=== PATIENT | male | born 1980 | race African-American/Black ===

== ENCOUNTER 2021-02-14 08:21 | Emergency (ER) | payer OTHER ==
[~2021-02-14] VITALS: Ht 182.9 cm; Wt 95.0 kg
[2021-02-14 09:32] VITALS: BP 142/92
[2021-02-14 09:56] LABS: *AMPHETAMINES SCREEN URINE NEGATIVE (NEGATIVE); *BARBITURATES SCREEN URINE NEGATIVE (NEGATIVE); *BENZODIAZEPINES SCREEN URINE NEGATIVE (NEGATIVE); *COCAINE SCREEN URINE NEGATIVE (NEGATIVE); METHADONE URINE SCREEN NEGATIVE (NEGATIVE); OPIATES URINE SCREEN NEGATIVE (NEGATIVE)
[2021-02-14 09:57] LABS: CANNABINOID URINE SCREEN NEGATIVE (NEGATIVE); PHENCYCLIDINE URINE SCREEN NEGATIVE (NEGATIVE)
== END 2021-02-14 10:47 | disposition home or self-care (01) ==
LOC: ER 08:21
DX: Z13.9 Encounter for screening, unspecified (principal); I49.8 Other specified cardiac arrhythmias
CPT/HCPCS: 80305; 93005; 99284

== ENCOUNTER 2022-04-24 20:59 | Inpatient (IN) | payer OTHER, MEDICAID ==
[~2022-04-24] VITALS: Ht 175.3 cm; Wt 73.5 kg
[2022-04-24 23:42] LABS: HEMATOCRIT. 43.3 % (42.0-52.0); HEMOGLOBIN. 14.9 g/dL (14.0-18.0); MEAN CORPUSCULAR HEMOGLOBIN 31.7 pg (28.0-32.0); MEAN PLATELET VOLUME 8.4 fl (7.4-10.4); PLATELET 286 x1000/uL (130-400); RED BLOOD CELL COUNT 4.71 mill/uL (4.7-6.1); RED CELL DISTRIBUTION WIDTH 14.8 % (11.6-14.6)
[2022-04-24 23:53] LABS: CHLORIDE 98 mEq/L (98-107)
[2022-04-25 00:12] LABS: CREATINE KINASE 1513 IU/L (39-308); ETHANOL BLOOD < 10 mg/dL
[2022-04-25 00:20] LABS: PLATELET ESTIMATE NORMAL
[2022-04-25] MEDS ORDERED: LORAZEPAM 2MG/ML CPJ IV ONE (02:00)
[2022-04-25] MEDS ORDERED: SODIUM CHLORIDE 0.9% 1,000 ML IV ONE (02:00)
[2022-04-25 04:41] LABS: CLARITY URINE CLEAR (CLEAR); COLOR URINE YELLOW (YELLOW); KETONES URINE 3+ (NEGATIVE); LEUKOCYTE ESTERASE URINE NEGATIVE (NEGATIVE); NITRITE URINE NEGATIVE (NEGATIVE); OCCULT BLOOD URINE NEGATIVE (NEGATIVE); PH URINE 6.5 (4.5-8.0); PROTEIN URINE NEGATIVE (NEGATIVE); SPECIFIC GRAVITY URINE 1.021 (1.005-1.030)
[2022-04-25 05:54] LABS: *AMPHETAMINES SCREEN URINE NEGATIVE (NEGATIVE); *BARBITURATES SCREEN URINE NEGATIVE (NEGATIVE); *BENZODIAZEPINES SCREEN URINE NEGATIVE (NEGATIVE); *COCAINE SCREEN URINE NEGATIVE (NEGATIVE); CANNABINOID URINE SCREEN NEGATIVE (NEGATIVE); METHADONE URINE SCREEN NEGATIVE (NEGATIVE); OPIATES URINE SCREEN NEGATIVE (NEGATIVE); PHENCYCLIDINE URINE SCREEN NEGATIVE (NEGATIVE)
[2022-04-25 09:00] VITALS: BP 148/92
[2022-04-25] MEDS ORDERED: RISP05 MT (10:30)
[2022-04-25] MEDS ORDERED: DOCUSATE SODIUM 100MG CAPSULE PO PRN (11:00)
[2022-04-25] MEDS ORDERED: IPRATROPIUM/ALBUTEROL 0.5-3(2.5)MG/3ML NEB HHN PRN (11:00)
[2022-04-25] MEDS ORDERED: LORAZEPAM 0.5MG TABLET PO PRN (11:00)
[2022-04-25] MEDS ORDERED: CLONIDINE 0.1MG TABLET PO PRN (11:00)
[2022-04-25] MEDS ORDERED: ACETAMINOPHEN 325MG TABLET PO PRN ×2 (11:00)
[2022-04-25 12:00] VITALS: BP 155/88
[2022-04-25] MEDS: SODIUM CHLORIDE 0.9% 1,000 ML IV SCH ×2 (12:42→21:00)
[2022-04-25 16:00] VITALS: BP 157/98
[2022-04-25] MEDS: RISPERIDONE 0.5MG TABLET PO SCH (17:16)
[2022-04-25 20:00] VITALS: BP 150/101
[2022-04-26] VITALS: BP 138/82
[2022-04-26 04:00] VITALS: BP 145/89
[2022-04-26] MEDS: SODIUM CHLORIDE 0.9% 1,000 ML IV SCH ×2 (06:07→16:09)
[2022-04-26 06:31] LABS: BASOPHILS % 0.5 % (0.0-2.0); EOSINOPHILS % 2.3 % (0.0-5.0); HEMOGLOBIN. 14.1 g/dL (14.0-18.0); LYMPHOCYTES % 12.8 % (20.0-50.0); MEAN CORPUSCULAR HEMOGLOBIN 30.9 pg (28.0-32.0); MEAN CORPUSCULAR VOLUME 92.3 fL (80.0-94.0); MEAN PLATELET VOLUME 8.4 fl (7.4-10.4); MONOCYTES % 9.5 % (2.0-8.0); NEUTROPHILS % 74.9 % (40.0-76.0); PLATELET 264 x1000/uL (130-400); RED BLOOD CELL COUNT 4.55 mill/uL (4.7-6.1); RED CELL DISTRIBUTION WIDTH 14.7 % (11.6-14.6)
[2022-04-26 07:37] LABS: CHLORIDE 99 mEq/L (98-107)
[2022-04-26 08:00] VITALS: BP 132/88
[2022-04-26 08:55] LABS: CREATINE KINASE 568 IU/L (39-308)
[2022-04-26] MEDS: RISPERIDONE 0.5MG TABLET PO SCH (09:36)
[2022-04-26] MEDS: ONDANSETRON HCL 4MG/2ML INJ IV PRN (11:30)
[2022-04-26 12:00] VITALS: BP 141/94
[2022-04-26 12:03] LABS: VITAMIN B12 SERUM 486 pg/mL (211-911)
[2022-04-26 16:00] VITALS: BP 148/95
[2022-04-26] MEDS: RISPERIDONE 1MG TABLET PO SCH (16:09)
[2022-04-26] MEDS: GUAIFENESIN 600MG ER TABLET PO SCH (16:09)
[2022-04-26] MEDS: TRAZODONE HCL 50MG TABLET PO SCH (20:20)
[2022-04-26] MEDS: DIVALPROEX SODIUM 250MG DR TABLET PO SCH (20:21)
[2022-04-27] VITALS: BP 133/78
[2022-04-27] MEDS: SODIUM CHLORIDE 0.9% 1,000 ML IV SCH ×3 (03:56→22:59)
[2022-04-27 04:00] VITALS: BP 134/85
[2022-04-27 08:00] VITALS: BP 143/87
[2022-04-27 08:08] LABS: HIV SCREEN 4G Non Reactive (Non Reactive)
[2022-04-27] MEDS: RISPERIDONE 1MG TABLET PO SCH ×2 (08:19→17:57)
[2022-04-27] MEDS: DIVALPROEX SODIUM 250MG DR TABLET PO SCH ×2 (08:19→21:49)
[2022-04-27] MEDS: GUAIFENESIN 600MG ER TABLET PO SCH ×2 (08:19→21:49)
[2022-04-27] MEDS: ONDANSETRON HCL 4MG/2ML INJ IV PRN ×2 (08:24→17:56)
[2022-04-27 12:00] VITALS: BP 149/94
[2022-04-27 16:00] VITALS: BP 142/90
[2022-04-27 20:00] VITALS: BP 151/94
[2022-04-27] MEDS: TRAZODONE HCL 50MG TABLET PO SCH (21:49)
[2022-04-27] MEDS: PRAZOSIN HCL 1MG CAPSULE PO SCH (21:49)
[2022-04-28] VITALS: BP 133/77
[2022-04-28 04:00] VITALS: BP 143/80
[2022-04-28 07:44] LABS: BASOPHILS % 0.5 % (0.0-2.0); HEMATOCRIT. 40.1 % (42.0-52.0); HEMOGLOBIN. 13.5 g/dL (14.0-18.0); LYMPHOCYTES % 15.8 % (20.0-50.0); MEAN CORPUSCULAR VOLUME 91.9 fL (80.0-94.0); MEAN PLATELET VOLUME 8.2 fl (7.4-10.4); MONOCYTES % 9.7 % (2.0-8.0); PLATELET 267 x1000/uL (130-400); RED BLOOD CELL COUNT 4.37 mill/uL (4.7-6.1); RED CELL DISTRIBUTION WIDTH 14.4 % (11.6-14.6)
[2022-04-28 08:00] VITALS: BP 150/85
[2022-04-28 08:51] LABS: CHLORIDE 106 mEq/L (98-107)
[2022-04-28] MEDS: DIVALPROEX SODIUM 250MG DR TABLET PO SCH ×2 (09:00→20:45)
[2022-04-28] MEDS: ONDANSETRON HCL 4MG/2ML INJ IV PRN ×2 (10:02→18:40)
[2022-04-28] MEDS: GUAIFENESIN 600MG ER TABLET PO SCH ×2 (10:02→20:45)
[2022-04-28] MEDS: RISPERIDONE 1MG TABLET PO SCH ×2 (10:03→17:00)
[2022-04-28 12:00] VITALS: BP 139/82
[2022-04-28] MEDS: SODIUM CHLORIDE 0.9% 1,000 ML IV SCH ×2 (12:32→20:44)
[2022-04-28 16:00] VITALS: BP 152/90
[2022-04-28 20:00] VITALS: BP 163/93
[2022-04-28] MEDS: PRAZOSIN HCL 1MG CAPSULE PO SCH (20:45)
[2022-04-28] MEDS: TRAZODONE HCL 50MG TABLET PO SCH (20:45)
[2022-04-28 22:28] LABS: PROTHROMBIN TIME 10.9 sec (9.6-11.0)
[2022-04-29] VITALS: BP 141/82
[2022-04-29 04:00] VITALS: BP 144/101
[2022-04-29] MEDS: SODIUM CHLORIDE 0.9% 1,000 ML IV SCH ×2 (05:31→14:47)
[2022-04-29 08:00] VITALS: BP 135/88
[2022-04-29] MEDS: RISPERIDONE 1MG TABLET PO SCH ×2 (09:00→17:00)
[2022-04-29] MEDS: GUAIFENESIN 600MG ER TABLET PO SCH ×2 (09:34→21:00)
[2022-04-29] MEDS: DIVALPROEX SODIUM 250MG DR TABLET PO SCH ×2 (09:34→21:00)
[2022-04-29] MEDS ORDERED: LIDOCAINE HCL 1% 50ML VIAL (10MG/ML) ONE (10:23)
[2022-04-29 12:00] VITALS: BP 140/88
[2022-04-29 16:00] VITALS: BP 151/92
[2022-04-29] MEDS: PRAZOSIN HCL 1MG CAPSULE PO SCH (21:00)
[2022-04-29] MEDS: TRAZODONE HCL 50MG TABLET PO SCH (21:00)
[2022-04-30] VITALS: BP 144/91
[2022-04-30] MEDS: SODIUM CHLORIDE 0.9% 1,000 ML IV SCH ×3 (01:00→16:17)
[2022-04-30 04:00] VITALS: BP 144/88
[2022-04-30 09:26] VITALS: BP 138/93
[2022-04-30] MEDS: GUAIFENESIN 600MG ER TABLET PO SCH ×2 (09:41→21:00)
[2022-04-30] MEDS: RISPERIDONE 1MG TABLET PO SCH ×2 (09:41→18:07)
[2022-04-30] MEDS: DIVALPROEX SODIUM 250MG DR TABLET PO SCH ×2 (09:41→20:59)
[2022-04-30 14:00] VITALS: BP 140/92
[2022-04-30 16:00] VITALS: BP 139/97
[2022-04-30] MEDS: TRAZODONE HCL 50MG TABLET PO SCH (21:00)
[2022-04-30] MEDS: PRAZOSIN HCL 1MG CAPSULE PO SCH (21:00)
[2022-05-01 08:00] VITALS: BP 142/95
[2022-05-01 08:09] LABS: BASOPHILS % 1.1 % (0.0-2.0); EOSINOPHILS % 4.1 % (0.0-5.0); HEMATOCRIT. 42.3 % (42.0-52.0); HEMOGLOBIN. 14.5 g/dL (14.0-18.0); MEAN CORPUSCULAR HEMOGLOBIN 31.3 pg (28.0-32.0); MEAN CORPUSCULAR VOLUME 91.2 fL (80.0-94.0); MEAN PLATELET VOLUME 7.9 fl (7.4-10.4); MONOCYTES % 9.7 % (2.0-8.0); NEUTROPHILS % 70.1 % (40.0-76.0); PLATELET 283 x1000/uL (130-400); RED BLOOD CELL COUNT 4.63 mill/uL (4.7-6.1)
[2022-05-01 08:25] LABS: CHLORIDE 103 mEq/L (98-107)
[2022-05-01] MEDS: RISPERIDONE 1MG TABLET PO SCH ×2 (09:00→10:06)
[2022-05-01] MEDS: DIVALPROEX SODIUM 250MG DR TABLET PO SCH ×2 (09:00→10:06)
[2022-05-01] MEDS: GUAIFENESIN 600MG ER TABLET PO SCH ×2 (10:06→21:41)
[2022-05-01] MEDS: SODIUM CHLORIDE 0.9% 1,000 ML IV SCH (10:06)
[2022-05-01] MEDS: ONDANSETRON HCL 4MG/2ML INJ IV PRN (10:14)
[2022-05-01 12:00] VITALS: BP 142/96
[2022-05-01] MEDS ORDERED: METHYLPREDNISOLONE SOD SUCC 125 MG/2 ML VIAL IV SCH (13:00)
[2022-05-01] MEDS: METHYLPREDNISOLONE SOD SUCC 40 MG/ML VIAL IV SCH ×2 (14:00→21:43)
[2022-05-01 16:00] VITALS: BP 140/96
[2022-05-01 20:00] VITALS: BP 138/94
[2022-05-01] MEDS: PRAZOSIN HCL 1MG CAPSULE PO SCH (21:41)
[2022-05-01] MEDS: TRAZODONE HCL 50MG TABLET PO SCH (21:42)
[2022-05-02] VITALS: BP 34/92
[2022-05-02] MEDS: SODIUM CHLORIDE 0.9% 1,000 ML IV SCH ×2 (00:05→09:53)
[2022-05-02 04:00] VITALS: BP 150/94
[2022-05-02] MEDS: METHYLPREDNISOLONE SOD SUCC 40 MG/ML VIAL IV SCH ×3 (05:06→21:15)
[2022-05-02 06:52] LABS: BASOPHILS % 0.4 % (0.0-2.0); HEMATOCRIT. 44.5 % (42.0-52.0); HEMOGLOBIN. 14.9 g/dL (14.0-18.0); MEAN CORPUSCULAR HEMOGLOBIN 30.8 pg (28.0-32.0); MEAN CORPUSCULAR VOLUME 91.8 fL (80.0-94.0); MEAN PLATELET VOLUME 8.2 fl (7.4-10.4); MONOCYTES % 3.2 % (2.0-8.0); NEUTROPHILS % 82.4 % (40.0-76.0); PLATELET 289 x1000/uL (130-400); RED BLOOD CELL COUNT 4.85 mill/uL (4.7-6.1)
[2022-05-02 07:18] LABS: CHLORIDE 103 mEq/L (98-107)
[2022-05-02 08:00] VITALS: BP 146/91
[2022-05-02] MEDS: GUAIFENESIN 600MG ER TABLET PO SCH ×2 (09:48→20:42)
[2022-05-02] MEDS: DIVALPROEX SODIUM 250MG DR TABLET PO SCH ×2 (09:48→20:44)
[2022-05-02] MEDS: RISPERIDONE 1MG TABLET PO SCH (09:48)
[2022-05-02 10:29] LABS: GLUCOSE CSF 54 mg/dL (41-75)
[2022-05-02 12:00] VITALS: BP 134/90
[2022-05-02 16:00] VITALS: BP 128/80
[2022-05-02 20:00] VITALS: BP 145/84
[2022-05-02] MEDS: TRAZODONE HCL 50MG TABLET PO SCH (20:42)
[2022-05-02] MEDS: PRAZOSIN HCL 1MG CAPSULE PO SCH (20:43)
[2022-05-03] VITALS: BP 128/82
[2022-05-03 04:00] VITALS: BP 135/83
[2022-05-03] MEDS: METHYLPREDNISOLONE SOD SUCC 40 MG/ML VIAL IV SCH ×3 (05:11→22:28)
[2022-05-03] MEDS ORDERED: POLYETHYLENE GLYCOL 3350 (17GM) 1 DOSE PACK PO PRN (09:45)
[2022-05-03] MEDS: RISPERIDONE 1MG TABLET PO SCH ×3 (09:45→16:55)
[2022-05-03] MEDS: GUAIFENESIN 600MG ER TABLET PO SCH ×2 (09:45→22:26)
[2022-05-03] MEDS: DIVALPROEX SODIUM 250MG DR TABLET PO SCH ×2 (09:46→22:26)
[2022-05-03] MEDS: SODIUM CHLORIDE 0.9% 1,000 ML IV SCH ×3 (09:48→21:00)
[2022-05-03 12:00] VITALS: BP 137/84
[2022-05-03 16:00] VITALS: BP 147/90
[2022-05-03 20:26] VITALS: BP 132/76
[2022-05-03] MEDS: PRAZOSIN HCL 1MG CAPSULE PO SCH (22:26)
[2022-05-03] MEDS: TRAZODONE HCL 50MG TABLET PO SCH (22:27)
[2022-05-04] VITALS (7 sets, daily range): BP systolic 128–142; BP diastolic 74–92
[2022-05-04] MEDS: SODIUM CHLORIDE 0.9% 1,000 ML IV SCH ×2 (05:22→17:15)
[2022-05-04] MEDS: METHYLPREDNISOLONE SOD SUCC 40 MG/ML VIAL IV SCH ×3 (05:46→21:20)
[2022-05-04] MEDS ORDERED: NA PHOS,M-B/NA PHOS,DI-BA ENEMA 118ML PR SCH (06:00)
[2022-05-04] MEDS: GUAIFENESIN 600MG ER TABLET PO SCH ×2 (09:18→21:20)
[2022-05-04] MEDS: RISPERIDONE 1MG TABLET PO SCH ×2 (09:18→17:14)
[2022-05-04] MEDS: DIVALPROEX SODIUM 250MG DR TABLET PO SCH ×2 (09:18→21:20)
[2022-05-04] MEDS ORDERED: BARIUM SULFATE 176 GM SUSP.RECON ONE (10:07)
[2022-05-04] MEDS: PRAZOSIN HCL 1MG CAPSULE PO SCH (21:20)
[2022-05-04] MEDS: TRAZODONE HCL 50MG TABLET PO SCH (21:20)
[2022-05-05] MEDS: SODIUM CHLORIDE 0.9% 1,000 ML IV SCH ×3 (02:12→21:49)
[2022-05-05 04:00] VITALS: BP 137/84
[2022-05-05] MEDS: METHYLPREDNISOLONE SOD SUCC 40 MG/ML VIAL IV SCH ×3 (05:18→21:49)
[2022-05-05 08:00] VITALS: BP 140/85
[2022-05-05] MEDS: DIVALPROEX SODIUM 250MG DR TABLET PO SCH ×2 (08:59→21:45)
[2022-05-05] MEDS: RISPERIDONE 1MG TABLET PO SCH ×2 (08:59→17:06)
[2022-05-05] MEDS: GUAIFENESIN 600MG ER TABLET PO SCH ×2 (08:59→21:45)
[2022-05-05 12:00] VITALS: BP 138/79
[2022-05-05 16:00] VITALS: BP 144/91
[2022-05-05 20:00] VITALS: BP 134/78
[2022-05-05] MEDS: PRAZOSIN HCL 1MG CAPSULE PO SCH (21:45)
[2022-05-05] MEDS: TRAZODONE HCL 50MG TABLET PO SCH (21:45)
[2022-05-06] VITALS: BP 130/81
[2022-05-06 04:00] VITALS: BP 132/77
[2022-05-06] MEDS: METHYLPREDNISOLONE SOD SUCC 40 MG/ML VIAL IV SCH ×3 (06:11→22:15)
[2022-05-06] MEDS: SODIUM CHLORIDE 0.9% 1,000 ML IV SCH ×2 (06:15→21:00)
[2022-05-06] MEDS: RISPERIDONE 1MG TABLET PO SCH ×2 (10:53→18:18)
[2022-05-06] MEDS: DIVALPROEX SODIUM 250MG DR TABLET PO SCH ×2 (10:53→22:12)
[2022-05-06] MEDS: GUAIFENESIN 600MG ER TABLET PO SCH ×2 (10:53→22:15)
[2022-05-06 12:00] VITALS: BP 133/81
[2022-05-06 16:00] VITALS: BP 127/84
[2022-05-06] MEDS: ONDANSETRON HCL 4MG/2ML INJ IV PRN ×2 (18:16→18:17)
[2022-05-06 20:00] VITALS: BP 135/84
[2022-05-06] MEDS: TRAZODONE HCL 50MG TABLET PO SCH (22:12)
[2022-05-06] MEDS: PRAZOSIN HCL 1MG CAPSULE PO SCH (22:15)
[2022-05-07] VITALS: BP 116/74
[2022-05-07 04:00] VITALS: BP 127/82
[2022-05-07] MEDS: SODIUM CHLORIDE 0.9% 1,000 ML IV SCH ×3 (05:12→23:30)
[2022-05-07] MEDS: METHYLPREDNISOLONE SOD SUCC 40 MG/ML VIAL IV SCH ×3 (05:12→21:13)
[2022-05-07 08:00] VITALS: BP 126/83
[2022-05-07] MEDS: GUAIFENESIN 600MG ER TABLET PO SCH ×2 (10:30→21:15)
[2022-05-07] MEDS: RISPERIDONE 1MG TABLET PO SCH ×2 (10:30→16:19)
[2022-05-07] MEDS: DIVALPROEX SODIUM 250MG DR TABLET PO SCH ×2 (10:30→21:15)
[2022-05-07 12:00] VITALS: BP 128/83
[2022-05-07 16:00] VITALS: BP 139/90
[2022-05-07 20:48] VITALS: BP 122/84
[2022-05-07] MEDS: TRAZODONE HCL 50MG TABLET PO SCH (21:13)
[2022-05-07] MEDS: PRAZOSIN HCL 1MG CAPSULE PO SCH (21:15)
[2022-05-08 00:13] VITALS: BP 137/78
[2022-05-08 04:00] VITALS: BP_SYST 137; BP_SYST 92; BP_DIAS 66; BP_DIAS 83
[2022-05-08] MEDS: METHYLPREDNISOLONE SOD SUCC 40 MG/ML VIAL IV SCH ×3 (05:49→21:27)
[2022-05-08 06:53] LABS: BASOPHILS % 0.2 % (0.0-2.0); HEMATOCRIT. 43.8 % (42.0-52.0); HEMOGLOBIN. 14.7 g/dL (14.0-18.0); LYMPHOCYTES % 11.4 % (20.0-50.0); MEAN CORPUSCULAR HEMOGLOBIN 30.2 pg (28.0-32.0); MEAN CORPUSCULAR VOLUME 90.1 fL (80.0-94.0); MEAN PLATELET VOLUME 8.3 fl (7.4-10.4); NEUTROPHILS % 83.4 % (40.0-76.0); PLATELET 303 x1000/uL (130-400); RED BLOOD CELL COUNT 4.86 mill/uL (4.7-6.1)
[2022-05-08 07:04] LABS: CHLORIDE 104 mEq/L (98-107)
[2022-05-08 09:00] VITALS: BP 135/88
[2022-05-08] MEDS: DIVALPROEX SODIUM 250MG DR TABLET PO SCH ×2 (09:00→21:27)
[2022-05-08] MEDS: GUAIFENESIN 600MG ER TABLET PO SCH ×2 (09:00→21:27)
[2022-05-08] MEDS: RISPERIDONE 1MG TABLET PO SCH ×2 (09:00→17:02)
[2022-05-08 12:00] VITALS: BP 127/82
[2022-05-08 16:00] VITALS: BP 132/86
[2022-05-08 20:00] VITALS: BP 120/70
[2022-05-08] MEDS: PRAZOSIN HCL 1MG CAPSULE PO SCH (21:27)
[2022-05-08] MEDS: TRAZODONE HCL 50MG TABLET PO SCH (21:27)
[2022-05-09] VITALS: BP 131/85
[2022-05-09 04:00] VITALS: BP 133/82
[2022-05-09] MEDS: METHYLPREDNISOLONE SOD SUCC 40 MG/ML VIAL IV SCH ×3 (05:03→22:08)
[2022-05-09] MEDS: GUAIFENESIN 600MG ER TABLET PO SCH ×2 (09:08→20:36)
[2022-05-09] MEDS: RISPERIDONE 1MG TABLET PO SCH ×2 (09:09→17:16)
[2022-05-09] MEDS: DIVALPROEX SODIUM 250MG DR TABLET PO SCH ×2 (09:09→20:35)
[2022-05-09 12:00] VITALS: BP 138/86
[2022-05-09 16:00] VITALS: BP_SYST 134; BP_SYST 141; BP_DIAS 56; BP_DIAS 75
[2022-05-09 20:00] VITALS: BP 133/82
[2022-05-09] MEDS: TRAZODONE HCL 50MG TABLET PO SCH (20:35)
[2022-05-09] MEDS: PRAZOSIN HCL 1MG CAPSULE PO SCH (20:36)
[2022-05-10] VITALS: BP 133/86
[2022-05-10 04:00] VITALS: BP 124/82
[2022-05-10] MEDS: METHYLPREDNISOLONE SOD SUCC 40 MG/ML VIAL IV SCH ×3 (05:48→21:17)
[2022-05-10 08:00] VITALS: BP 127/78
[2022-05-10] MEDS: RISPERIDONE 1MG TABLET PO SCH ×2 (08:45→17:37)
[2022-05-10] MEDS: DIVALPROEX SODIUM 250MG DR TABLET PO SCH ×2 (08:45→21:17)
[2022-05-10] MEDS: GUAIFENESIN 600MG ER TABLET PO SCH ×2 (08:45→21:17)
[2022-05-10 12:00] VITALS: BP 124/77
[2022-05-10 16:00] VITALS: BP 124/72
[2022-05-10 20:00] VITALS: BP 123/83
[2022-05-10] MEDS: TRAZODONE HCL 50MG TABLET PO SCH (21:17)
[2022-05-10] MEDS: PRAZOSIN HCL 1MG CAPSULE PO SCH (21:18)
[2022-05-10] MEDS: ZOLPIDEM TARTRATE 5MG TABLET PO PRN (22:39)
[2022-05-11] VITALS: BP 121/72
[2022-05-11 04:00] VITALS: BP 123/78
[2022-05-11] MEDS: METHYLPREDNISOLONE SOD SUCC 40 MG/ML VIAL IV SCH ×3 (06:49→21:48)
[2022-05-11 08:00] VITALS: BP 128/74
[2022-05-11] MEDS: DIVALPROEX SODIUM 250MG DR TABLET PO SCH ×2 (09:18→21:46)
[2022-05-11] MEDS: GUAIFENESIN 600MG ER TABLET PO SCH ×2 (09:18→21:00)
[2022-05-11] MEDS: RISPERIDONE 1MG TABLET PO SCH ×2 (09:18→17:40)
[2022-05-11 12:00] VITALS: BP 119/80
[2022-05-11 16:00] VITALS: BP 119/72
[2022-05-11 20:19] VITALS: BP 120/80
[2022-05-11] MEDS: PRAZOSIN HCL 1MG CAPSULE PO SCH (21:46)
[2022-05-11] MEDS: TRAZODONE HCL 50MG TABLET PO SCH (21:46)
[2022-05-11] MEDS: ZOLPIDEM TARTRATE 5MG TABLET PO PRN (21:57)
[2022-05-12 04:00] VITALS: BP 118/77
[2022-05-12] MEDS: METHYLPREDNISOLONE SOD SUCC 40 MG/ML VIAL IV SCH (05:46)
[2022-05-12] MEDS: GUAIFENESIN 600MG ER TABLET PO SCH ×2 (09:22→20:36)
[2022-05-12] MEDS: RISPERIDONE 1MG TABLET PO SCH ×2 (09:22→17:57)
[2022-05-12] MEDS: DIVALPROEX SODIUM 250MG DR TABLET PO SCH ×2 (09:22→21:23)
[2022-05-12 12:00] VITALS: BP 120/81
[2022-05-12] MEDS: PANTOPRAZOLE 40MG DR TABLET PO SCH (13:21)
[2022-05-12] MEDS: ENOXAPARIN 40MG/0.4ML SYR SUBCUT SCH (13:21)
[2022-05-12 16:00] VITALS: BP 114/76
[2022-05-12 20:00] VITALS: BP 121/80
[2022-05-12] MEDS: TRAZODONE HCL 50MG TABLET PO SCH (21:22)
[2022-05-12] MEDS: ZOLPIDEM TARTRATE 5MG TABLET PO PRN (21:22)
[2022-05-12] MEDS: PRAZOSIN HCL 1MG CAPSULE PO SCH (21:23)
[2022-05-13] VITALS: BP 134/80
[2022-05-13 04:00] VITALS: BP 116/72
[2022-05-13 08:00] VITALS: BP 115/73
[2022-05-13] MEDS: DIVALPROEX SODIUM 250MG DR TABLET PO SCH ×2 (08:23→20:50)
[2022-05-13] MEDS: GUAIFENESIN 600MG ER TABLET PO SCH ×2 (08:23→20:50)
[2022-05-13] MEDS: PREDNISONE 20MG TABLET PO SCH (08:24)
[2022-05-13] MEDS: PANTOPRAZOLE 40MG DR TABLET PO SCH (08:24)
[2022-05-13] MEDS: ENOXAPARIN 40MG/0.4ML SYR SUBCUT SCH (08:24)
[2022-05-13] MEDS: RISPERIDONE 1MG TABLET PO SCH ×2 (08:25→18:14)
[2022-05-13 16:00] VITALS: BP 123/89
[2022-05-13 20:00] VITALS: BP 118/75
[2022-05-13] MEDS: TRAZODONE HCL 50MG TABLET PO SCH (20:50)
[2022-05-13] MEDS: PRAZOSIN HCL 1MG CAPSULE PO SCH (20:50)
[2022-05-14 00:05] VITALS: BP 120/78
[2022-05-14 04:00] VITALS: BP 124/86
[2022-05-14 08:00] VITALS: BP 118/83
[2022-05-14] MEDS: PREDNISONE 20MG TABLET PO SCH (09:15)
[2022-05-14] MEDS: FAMOTIDINE 20MG TABLET PO SCH ×2 (09:15→21:00)
[2022-05-14] MEDS: RISPERIDONE 1MG TABLET PO SCH ×2 (09:15→17:43)
[2022-05-14] MEDS: DIVALPROEX SODIUM 250MG DR TABLET PO SCH ×2 (09:16→21:00)
[2022-05-14] MEDS: GUAIFENESIN 600MG ER TABLET PO SCH ×2 (09:16→21:00)
[2022-05-14 12:00] VITALS: BP 102/68
[2022-05-14] MEDS: ENOXAPARIN 40MG/0.4ML SYR SUBCUT SCH (12:47)
[2022-05-14 16:00] VITALS: BP 115/75
[2022-05-14 20:00] VITALS: BP 108/73
[2022-05-14] MEDS: PRAZOSIN HCL 1MG CAPSULE PO SCH (20:59)
[2022-05-14] MEDS: TRAZODONE HCL 50MG TABLET PO SCH (20:59)
[2022-05-14 22:32] LABS: CREATINE KINASE 52 IU/L (39-308)
[2022-05-15] VITALS (7 sets, daily range): BP systolic 106–121; BP diastolic 65–82
[2022-05-15 08:28] LABS: HEMATOCRIT 42.3 % (42.0-52.0); HEMOGLOBIN 14.3 g/dL (14.0-18.0); MEAN CORPUSCULAR HEMOGLOBIN 30.8 pg (28.0-32.0); MEAN CORPUSCULAR VOLUME 91.3 fL (80.0-94.0); PLATELET 263 x1000/uL (130-400); RED BLOOD CELL COUNT 4.63 mill/uL (4.7-6.1); RED CELL DISTRIBUTION WIDTH 14.6 % (11.6-14.6)
[2022-05-15 08:44] LABS: CHLORIDE 104 mEq/L (98-107)
[2022-05-15] MEDS: PREDNISONE 20MG TABLET PO SCH (10:28)
[2022-05-15] MEDS: GUAIFENESIN 600MG ER TABLET PO SCH ×2 (10:28→20:50)
[2022-05-15] MEDS: RISPERIDONE 1MG TABLET PO SCH ×2 (10:28→18:13)
[2022-05-15] MEDS: FAMOTIDINE 20MG TABLET PO SCH ×2 (10:28→20:50)
[2022-05-15] MEDS: DIVALPROEX SODIUM 250MG DR TABLET PO SCH ×2 (10:29→20:50)
[2022-05-15] MEDS: ENOXAPARIN 40MG/0.4ML SYR SUBCUT SCH (14:07)
[2022-05-15] MEDS: TRAZODONE HCL 50MG TABLET PO SCH (20:50)
[2022-05-15] MEDS: PRAZOSIN HCL 1MG CAPSULE PO SCH (20:50)
[2022-05-16 04:00] VITALS: BP 116/67
[2022-05-16 08:00] VITALS: BP 105/69
[2022-05-16] MEDS: FAMOTIDINE 20MG TABLET PO SCH ×2 (08:31→22:27)
[2022-05-16] MEDS: GUAIFENESIN 600MG ER TABLET PO SCH ×2 (08:31→22:26)
[2022-05-16] MEDS: RISPERIDONE 1MG TABLET PO SCH ×2 (08:31→17:11)
[2022-05-16] MEDS: PREDNISONE 20MG TABLET PO SCH (08:32)
[2022-05-16] MEDS: DIVALPROEX SODIUM 250MG DR TABLET PO SCH ×2 (08:32→22:26)
[2022-05-16 12:00] VITALS: BP 102/65
[2022-05-16] MEDS: ENOXAPARIN 40MG/0.4ML SYR SUBCUT SCH (12:29)
[2022-05-16 16:00] VITALS: BP 97/60
[2022-05-16 20:00] VITALS: BP 101/62
[2022-05-16] MEDS: PRAZOSIN HCL 1MG CAPSULE PO SCH (21:00)
[2022-05-16] MEDS: TRAZODONE HCL 50MG TABLET PO SCH (22:26)
[2022-05-17 08:00] VITALS: BP 119/81
[2022-05-17] MEDS: PREDNISONE 20MG TABLET PO SCH (08:36)
[2022-05-17] MEDS: GUAIFENESIN 600MG ER TABLET PO SCH ×2 (08:37→20:29)
[2022-05-17] MEDS: FAMOTIDINE 20MG TABLET PO SCH ×2 (08:37→20:29)
[2022-05-17] MEDS: RISPERIDONE 1MG TABLET PO SCH ×2 (08:37→16:58)
[2022-05-17] MEDS: DIVALPROEX SODIUM 250MG DR TABLET PO SCH ×2 (08:37→20:29)
[2022-05-17 12:00] VITALS: BP 112/72
[2022-05-17] MEDS: ENOXAPARIN 40MG/0.4ML SYR SUBCUT SCH (12:24)
[2022-05-17 16:00] VITALS: BP 115/78
[2022-05-17 20:00] VITALS: BP 108/62
[2022-05-17] MEDS: PRAZOSIN HCL 1MG CAPSULE PO SCH (20:29)
[2022-05-17] MEDS: TRAZODONE HCL 50MG TABLET PO SCH (20:29)
[2022-05-18 00:02] VITALS: BP 115/70
[2022-05-18 04:00] VITALS: BP 108/68
[2022-05-18 08:00] VITALS: BP 101/69
[2022-05-18] MEDS: FAMOTIDINE 20MG TABLET PO SCH ×2 (09:00→20:32)
[2022-05-18] MEDS: RISPERIDONE 1MG TABLET PO SCH ×2 (09:00→17:23)
[2022-05-18] MEDS: PREDNISONE 20MG TABLET PO SCH (09:00)
[2022-05-18] MEDS: GUAIFENESIN 600MG ER TABLET PO SCH ×2 (09:00→20:32)
[2022-05-18] MEDS: DIVALPROEX SODIUM 250MG DR TABLET PO SCH ×2 (09:00→20:32)
[2022-05-18 12:00] VITALS: BP 106/66
[2022-05-18] MEDS: ENOXAPARIN 40MG/0.4ML SYR SUBCUT SCH (15:17)
[2022-05-18 16:00] VITALS: BP 104/62
[2022-05-18 20:00] VITALS: BP 101/66
[2022-05-18] MEDS: TRAZODONE HCL 50MG TABLET PO SCH (20:32)
[2022-05-18] MEDS: PRAZOSIN HCL 1MG CAPSULE PO SCH (20:32)
[2022-05-19 00:01] VITALS: BP 109/66
[2022-05-19 04:00] VITALS: BP 113/68
[2022-05-19 07:53] VITALS: BP 117/76
[2022-05-19] MEDS ORDERED: PREDNISONE 20MG TABLET PO SCH (09:00)
[2022-05-19] MEDS ORDERED: PRAZ1CAP2 PO (09:25)
[2022-05-19] MEDS ORDERED: P20 PO (09:25)
[2022-05-19] MEDS ORDERED: FAMO20TA8 PO (09:25)
[2022-05-19] MEDS ORDERED: TRAZ-251 PO (09:25)
[2022-05-19] MEDS ORDERED: RISP1 PO (09:25)
[2022-05-19] MEDS: GUAIFENESIN 600MG ER TABLET PO SCH (09:44)
[2022-05-19] MEDS: RISPERIDONE 1MG TABLET PO SCH (09:44)
[2022-05-19] MEDS: DIVALPROEX SODIUM 250MG DR TABLET PO SCH (09:44)
[2022-05-19] MEDS: FAMOTIDINE 20MG TABLET PO SCH (09:44)
[2022-05-19 10:38] VITALS: BP 120/73
== END 2022-05-19 11:50 | disposition home or self-care (01) | DRG 552 ==
LOC: ER 20:59 → 7WST 04-25 06:21 → EDBEDREQSVC 04-25 06:27 → EDBEDREQTM 04-25 06:27 → EDBEDREQ 04-25 06:27 → ENRESERV 04-25 07:46
PROVIDERS: ADMIT Internal Medicine; ATTEND Internal Medicine
DX: M48.02 Spinal stenosis, cervical region (principal); F31.30 Bipolar disorder, current episode depressed, mild or moderate severity, unspecified; D72.821 Monocytosis (symptomatic); R74.01 Elevation of levels of liver transaminase levels; R82.4 Acetonuria; F43.10 Post-traumatic stress disorder, unspecified; D72.829 Elevated white blood cell count, unspecified; Z59.01 Sheltered homelessness; Z20.822 Contact with and (suspected) exposure to COVID-19
CPT/HCPCS: 36415; 62328; 70551; 71045; 72141; 72146; 72148; 74230; 80048; 80053; 80305; 80307; 80320; 80329; 81003; 82140; 82550; 82607; 82945; 82962; 83605; 84157; 84443; 84484; 85025; 85027; 86788; 86789; 87070; 87389; 87426; 87899; 89060; 92610; 92611; 93005; 97110; 97116; 97162; 97530; 99291; J1650; J2060; J2405; J2920; J2930; J3490; J7030; J7512; G0480